=== PATIENT | female | born 1985 | race Caucasian/White ===

== ENCOUNTER 2016-10-15 00:19 | Emergency (ER) | payer OTHER ==
[~2016-10-15] VITALS: Ht 165.1 cm; Wt 65.8 kg
--- NOTE | 2016-10-15 00:37 | NUR ---
PT A/OX4 BREATHING EFFORTLESSLY ON ROOM AIR, PT STATES SHE HAS BEEN HAVING PAINFUL URINATION X 2 DAYS PT URINE COLLECTED AND SENT TO LAB, MADE AWARE WILL CONTINUE TO MONITOR.
[2016-10-15 00:47] LABS: BILIRUBIN,URINE NEGATIVE (NEGATIVE); BLOOD, URINE 2+ Ery/uL (NEGATIVE); COLOR,URINE YELLOW (YELLOW); KETONES,URINE NEGATIVE (NEGATIVE); LEUKOCYTE ESTERASE ,URINE NEGATIVE (NEGATIVE); NITRITE, URINE NEGATIVE (NEGATIVE); PROTEIN,URINE TRACE mg/dl (NEGATIVE); UGLUCOSE NEGATIVE (NEGATIVE); UROBILINOGEN,URINE 0.2 EU/dL (0.2)
[2016-10-15 00:50] LABS: APPEARANCE,URINE HAZY (CLEAR); PREGNANCY TEST URINE QUAL NEGATIVE (NEGATIVE)
[2016-10-15 01:00] LABS: BACTERIA,URINE 2+ /HPF (None Seen); SQUAMOUS EPITHELIAL CELL,UR Few /HPF (None Seen)
[2016-10-15 01:17] VITALS: BP 140/92
== END 2016-10-15 01:18 | disposition home or self-care (01) ==
LOC: ER 00:22
DX: N39.0 Urinary tract infection, site not specified (principal)
CPT/HCPCS: 81000-TC; 84703-TC; 87086-TC; 87186-TC; A4606; Z7610